=== PATIENT | female | born 2000 | race Hispanic/Latino ===

== ENCOUNTER 2018-06-08 08:31 | Outpatient (CLI) | payer OTHER ==
--- NOTE | 2018-06-08 10:01 | RAD ---
RIGHT FOOT 3 VIEWS: Date: 06/08/18 HISTORY: Pain, centered around 4th and 5th metatarsal. COMPARISON: None. FINDINGS: Lisfranc alignment is maintained. Joint spaces are preserved. No fracture. No cortical irregularity o r periosteal reaction. IMPRESSION: Unremarkable right foot 3 views. POS: [facility]
== END 2018-06-08 08:32 | disposition home or self-care (01) ==
LOC: RAD 08:31 → BICRAD 08:32
PROVIDERS: ATTEND Nurse Practitioner Family
DX: M79.671 Pain in right foot (principal)